=== PATIENT | female | born 1960 | race Caucasian/White ===

== ENCOUNTER 2024-07-04 18:46 | Emergency (ER) | payer MEDICARE, SELFPAY ==
[2024-07-04 18:47] VITALS: BMI 39.4
[2024-07-04 19:17] VITALS: BP 188/113; BP 196/103; PULSE 76; RESP 20; TEMP 36.9; O2SAT 96
--- NOTE | 2024-07-04 19:17 | EKG_ITS ---
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
--- NOTE | 2024-07-04 19:31 | XR_ITS ---
Examination: PA chest single view TECHNIQUE: Upright PA chest single view Date and time: July 04, 2024 1937 hours Comparison January 16, 2023 INDICATIONS: Hypertension chest pain today FINDINGS: Normal heart size. Lungs are clear. The osseous structures are intact IMPRESSION: No active disease
--- NOTE | 2024-07-04 19:31 | PD.EDRME ---
Rapid Medical Screening Exam [facility] Arrival date/time: 07/04/24 18:46 64F with history of HTN, HLD, and bipolar disorder presents to ED with 1 day of CP that radiates to jaw and back, as well as some weakness. Patient took 4 baby aspirins with the last dose 2 hours ago. Chief Complaint: Chest Pain Vital signs: Vital Signs Temperature 98.4 F 07/04/24 19:17 Pulse Rate 76 07/04/24 19:17 Respiratory Rate 20 07/04/24 19:17 Blood Pressure 188/113 H 07/04/24 19:17 Pulse Oximetry (%) 96 07/04/24 19:17 Oxygen Delivery Method Room Air 07/04/24 19:17
[2024-07-04 20:21] LABS: Basophils % (Auto) 0 % (0-2.5); Eosinophils # (Auto) 0.2 Thou/mm3 (0.0-0.5); Eosinophils % (Auto) 2 % (0-10); Hematocrit 43.5 % (36.0-46.0); Hemoglobin 14.4 g/dL (12.0-16.0); Immature Granulocytes % (Auto) 0 % (0-0); Immature Granulocytes Auto 0.02 Thou/mm3 (0.00-0.00); Lymphocytes # (Auto) 3.2 Thou/mm3 (1.0-4.8); Lymphocytes % (Auto) 41 % (10-50); Mean Corpuscular HGB Conc 33.1 g/dl (31.0-37.0); Mean Corpuscular Hemoglobin 29.4 pg (25.0-35.0); Mean Corpuscular Volume 89 fL (80-100); Monocytes # (Auto) 0.7 Thou/mm3 (0.0-0.8); Monocytes % (Auto) 9 % (0-12); Neutrophils # (Auto) 3.7 Thou/mm3 (1.8-7.7); Neutrophils % (Auto) 47 % (37-80); Nucleated Red Blood Cell % 0 /100 WBC (0); Platelet Count 250 Thou/mm3 (140-440); RDW Standard Deviation 40.8 fL (36.4-46.3); White Blood Count 7.9 Thou/mm3 (3.6-11.0)
[2024-07-04 20:34] LABS: Partial Thromboplastin Time 25.4 Seconds (22.0-36.0); Prothrombin Time 10.5 Seconds (9.0-12.2)
[2024-07-04 20:54] LABS: Alanine Aminotransferase 20 U/L (10-49); Albumin, Serum 4.6 gm/dL (3.4-4.8); Albumin/Globulin Ratio 1.9 (1.2-2.2); Alkaline Phosphatase 112 U/L (46-116); Anion Gap 11 (7-16); Aspartate Amino Transferase 23 U/L (0-34); BUN/Creatinine Ratio 15 Ratio (12-20); Bilirubin,Total 0.2 mg/dL (0.3-1.2); Blood Urea Nitrogen 15 mg/dL (9-23); Calcium 9.2 mg/dL (8.3-10.6); Calcium (Corrected) 9.2 mg/dL (8.5-10.1); Carbon Dioxide 26.4 mMol/L (20.0-31.0); Chloride 107 mMol/L (98-107); Globulin 2.4 gm/dL (2.3-3.5); Glucose 105 mg/dL (74-106); Magnesium 1.9 mg/dL (1.6-2.6); Osmolality,Calculated 287 (275-295); Potassium 4.2 mMol/L (3.4-5.1); Sodium 144 mMol/L (136-145); Troponin I < 0.002 ng/mL (0.0-0.045); eGFR > 60 See Note
[2024-07-04 22:16] LABS: Troponin I < 0.020 ng/mL (0.0-0.045)
[2024-07-05] VITALS (7 sets, daily range): BP systolic 183–238; BP diastolic 72–114; PULSE 61–87; RESP 16–30; TEMP 36.9; O2SAT 96–98
--- NOTE | 2024-07-05 00:08 | PD.EDCHEST ---
ED Chest Pain RME/HPI General Chief Complaint: Chest Pain Stated Complaint: HIGH BP, CHEST PAIN AND BACK PAIN X1 DAY Arrival date/time: 07/04/24 18:46 RME / HPI RME / HPI narrative: 07/04/24 18:46 64F with history of HTN, HLD, and bipolar disorder presents to ED with 1 day of CP that radiates to jaw and back, as well as some weakness. Patient took 4 baby aspirins with the last dose [address] Sparks?s Main ED Evaluation: 64yo female with a history of HTN, HLD presents to the ED for a chief complaint of mid chest pain x 1000. Patient states she's had intermittent chest pain that radiates to her neck since 10 this morning. Patient describes her pain as aching and burning in nature. She states she feels very fatigued. She checked her blood pressure at home and was noted to be over 200 systolically, so she came in for evaluation. Patient states she normally takes her lisinopril 20mg at night, but has not taken it yet due to being here in the ED. Patient denies any fever, chills, cough, shortness of breath or any other associated symptoms. No known allergies. Related Data Home Medications ?Medication ?Instructions ?Recorded ?Confirmed bupropion HCl 150 mg 24 hr tablet, 150 mg PO DAILY ##0 11/16/11 extended release (Wellbutrin XL) lisinopril 40 mg tablet 40 mg PO DAILY ##0 11/16/11 naproxen sodium 220 mg tablet 220 mg PO [id number] ##0 11/16/11 (Aleve) quetiapine 300 mg tablet (Seroquel) 300 mg PO HS ##0 11/16/11 ferrous sulfate 325 mg (65 mg 325 mg PO QDAY #0 tabs 04/13/15 iron) tablet (Feosol) simvastatin 20 mg tablet (Zocor) 20 mg PO HS #0 tabs 04/13/15 Previous Rx's ?Medication ?Instructions ?Recorded albuterol sulfate 90 mcg/actuation 2 puff inhalation QID PRN 02/14/20 aerosol inhaler (ProAir HFA) shortness of breath or wheezing #18 grams azithromycin 500 mg tablet See Rx Instructions PO .COMPLEX #6 02/14/20 (Zithromax TRI-KENZIE) tabs dexamethasone 6 mg tablet 6 mg PO QDAY #7 tabs 02/14/20 (Decadron) Allergies Allergy/AdvReac Type Severity Reaction Status Date / Time No Known Allergies Allergy Unverified 07/04/24 19:34 Review of Systems Review of Systems Systems Reviewed: All systems reviewed, normal except as documented Past Medical History Past Medical History CARDIAC: Negative Congestive Heart Failure RESPIRATORY: Negative Chronic Obstructive Pulmonary Disease (COPD) GENITOURINARY: Negative Renal Disease ENDOCRINE: Negative Diabetes Mellitus Type 1 or Diabetes Mellitus Type 2 OTHER HISTORY: Positive Blood Transfusions Social History SMOKING STATUS: Never smoker ED Exam Narrative Physical exam: GENERAL APPEARANCE: alert and oriented x 4, well-developed, well-nourished, no acute distress VITALS: All vitals were reviewed and the pulse ox is 96% on room air, which is normal according to my interpretation. HEENT: Normocephalic, atraumatic; pupils equal, round, reactive to light; EOMI; mucous membranes pink, moist; oropharynx clear NECK: Supple LUNGS: CTABL; no wheezes, no rales, no rhonchi HEART: Regular rate, regular rhythm; normal S1, S2; no murmurs ABDOMEN: non distended; normal BS; soft, no tenderness, no guarding, no rebound; no masses, no organomegaly, no hernia BACK: no CVA tenderness EXTREMITIES: atraumatic; no edema NEUROLOGIC: awake; alert and oriented x4; cranial nerves II-XII grossly intact; no focal sensory or motor deficits PSYCHIATRIC: appropriate mood and affect SKIN: warm, dry, normal color; no rashes Course Course Course Narrative: CXR is ordered for determining the etiology of chest pain. Quality Measures none Orders Category Date Time Status CT Screening NOW Care 07/05/24 00:24 Active Certified Forklift Operator Q4H START 00 Care 07/05/24 01:02 Active EKG (ED ONLY) *Do not use* NOW Care 07/04/24 19:17 Completed Insert IV NOW Care 07/05/24 01:[address] angio chest Stat Exams 07/05/24 00:[address] head/brain wo con Stat Exams 07/05/24 03:00 Taken EKG (ED Only) Stat Exams 07/04/24 19:17 Draft XR chest 1V portable Stat Exams 07/04/24 19:31 Completed CBC Stat Lab 07/04/24 19:48 Completed Comprehensive Metabolic Panel Stat Lab 07/04/24 19:48 Completed Magnesium Stat Lab 07/04/24 19:48 Completed Partial Thromboplastin Time Stat Lab 07/04/24 19:48 Completed Prothrombin Time with INR Stat Lab 07/04/24 19:48 Completed Troponin I Stat Lab 07/04/24 19:48 Completed Troponin I Stat Lab 07/04/24 21:38 Completed Famotidine [Pepcid] Med 07/05/24 00:17 Discontinued 20 mg PO X1 ONE Labetalol IV [Trandate IV] Med 07/05/24 02:57 Discontinued 20 mg IVP X1 ONE Labetalol IV [Trandate IV] Med 07/05/24 02:58 Discontinued 20 mg IVP X1 ONE Lisinopril [Prinivil] Med 07/05/24 00:17 Discontinued 20 mg PO X1 ONE Nitroglycerin [Nitrostat 1/150] Med 07/04/24 19:33 Discontinued 0.4 mg SL X1 ONE hydrALAZINE INJ [Apresoline Inj] Med 07/05/24 04:40 Once 5 mg IV X1 ONE mg Hyd/Al Hyd/Korey Susp [Maalox Susp] Med 07/05/24 00:17 Discontinued 30 ml PO X1 ONE Vital Signs Vital signs: Vital Signs Temperature 98.4 F 07/04/24 19:17 Pulse Rate 76 07/04/24 19:17 Respiratory Rate 20 07/04/24 19:17 Blood Pressure 188/113 H 07/04/24 19:17 Pulse Oximetry (%) 96 07/04/24 19:17 Oxygen Delivery Method Room Air 07/04/24 19:17 Chest Pain MDM Narrative MDM Narrative:: Scribe Attestation: 07/05/24 - Tess Rojas am scribing for and in the presence of Dr. Sparks. HEART score is 3, indicating the patient is at a low risk for a cardiac event. 0231: Patient is still pending CTA of the chest at this time. 0258: Patient's blood pressure is 238/114 with a HR of 78. Labetalol 20mg IV ordered. CT head ordered due to the patient becoming mildly confused. Patient does also complain of a headache. 0436: Son at bedside states the patient was falling asleep earlier, reporting she talks in her sleep. Patient is now back to her baseline per her son. Discussed results with her and the son at bedside. Patient is stable to be discharged home. Patient data External records reviewed:: [facility] previous records (Per chart review, patient was seen here on 01/16/23 for atypical chest pain.) Clinical information provided by:: patient Social determinants that could affect healthcare access:: none Patient has the following chronic illnesses:: HTN, HLD How is presenting disease/condition affected by chronic disease/condition?: uneffected by Evaluation data The following diagnostics were reviewed and interpreted by me:: lab results, radiology exam(s) and EKG tracing(s) Lab and/or radiology exams considered but not ordered:: none Interpretation Summary: CBC is normal, PT and INR are normal, PTT is normal, CMP is normal, Initial and Repeat troponins are normal, according to my interpretation. CXR shows normal cardiac silhouette, normal sharp diaphragmatic edge, no infiltrates, normal costophrenic angles, according to my interpretation. EKG done at 1920, NSR, rate of 782, normal axis, no ectopy, no acute ischemia, according to my interpretation. [facility] Preliminary Report Draft Patient: LACHO MARK Record#: [id number] Birthdate: 1960 Age/Sex: 64 / F Location: [facility] Attending Dr: Ordering Physician: Date of Service: Procedure(s): Accession Number(s): cc: ~ CT scan of the head without intravenous contrast (axial sections with sagittal and coronal reformats) July 05, 2024 0326 hours Clinical History: Altered mental status Comparison: No prior study is available for comparison. Findings: There is no evidence of intracranial hemorrhage, mass effect or midline shift. There is mild volume loss. There is a small indeterminate lucency in the right parietal bone. There is a small retention cyst or polyp in the right maxillary sinus. The mastoid air cells and the other visualized paranasal sinuses are clear. Impression: No evidence of intracranial hemorrhage, mass effect or midline shift. Mild volume loss. Small indeterminate lucency in the right parietal bone. Recommend follow-up. Report Electronically Signed By: Herrera Lerma 07/05/2024 4:15:53 AM [EST] Teler[facility] Preliminary Report Draft Patient: LACHO MARK Record#: [id number] Birthdate: 1960 Age/Sex: 64 / F Location: [facility] Attending Dr: Ordering Physician: Date of Service: Procedure(s): Accession Number(s): cc: ~ CT angiogram of the chest aorta with intravenous contrast (axial sections with sagittal and coronal reformats) July 05, 2024 0331 hours Clinical History: Sharp chest pain, hypertension Comparison: No prior study is available for comparison. Findings: The evaluation is slightly limited due to respiratory motion artifact. The thoracic aorta demonstrates mild atheromatous calcification without evidence of dissection or aneurysm. The origins of the right brachiocephalic, left common carotid and left subclavian arteries are patent. There is no filling defect within the pulmonary artery divisions to suggest pulmonary thromboembolism. There are small mediastinal lymph nodes, likely reactive. There is no pericardial effusion. Mild bibasilar dependent atelectasis is present. The lungs are otherwise clear. No evidence of pleural effusion or pneumothorax. Degenerative changes are identified in the spine. There is scoliosis of the thoracic spine with convexity to the left. The gallbladder is surgically absent. The other visualized upper abdominal viscera are unremarkable. Impression: No CT evidence of pulmonary thromboembolism or aortic dissection/aneurysm. No other acute intrathoracic pathology. Other findings as described above. Report Electronically Signed By: Herrera Lerma 07/05/2024 4:22:23 AM [EST] Medications / Prescriptions Medications or Prescriptions considered but not ordered:: none Medication administrations:: Medication Administration History Discontinued Medications Al Hydrox/Mg Hydrox/Simethicone (Mg Hyd/Al Hyd/Korey (Maalox Reg) Susp 30 Ml Udc) 30 ml PO X1 ONE Stop: 07/05/24 00:18 Last Admin: 07/05/24 00:49 Dose: 30 ml Documented By: BD Famotidine (Famotidine 20 Mg Tablet) 20 mg PO X1 ONE Stop: 07/05/24 00:18 Last Admin: 07/05/24 00:49 Dose: 20 mg Documented By: BD Labetalol HCl (Labetalol Inj 5 Mg/Ml Vial 20 Ml) 20 mg IVP X1 ONE Stop: 07/05/24 02:58 Last Admin: 07/05/24 03:07 Dose: 20 mg Documented By: BD Labetalol HCl (Labetalol Inj 5 Mg/Ml Vial 20 Ml) 20 mg IVP X1 ONE Stop: 07/05/24 02:59 Last Admin: 07/05/24 02:59 Dose: Not Given Documented By: BD Non-Admin Reason: Duplicate Medication on eMAR Lisinopril (Lisinopril 20 Mg Tablet) 20 mg PO X1 ONE Stop: 07/05/24 00:18 Last Admin: 07/05/24 00:50 Dose: 20 mg Documented By: BD Nitroglycerin (Nitroglycerin 0.4 Mg Subl Btl #25) 0.4 mg SL X1 ONE Stop: 07/04/24 19:34 Last Admin: 07/05/24 00:49 Dose: Not Given Documented By: BD Non-Admin Reason: Cancelled by Provider see above Consultations Consultation(s) initiated? (list below): No Diagnosis Chest Pain Differential Diagnosis: pneumothorax, st elevation myocardial infarction and other (NSTEMI, chest wall pain) Most likely diagnosis given after review of the tests above:: see clinical impression below Admission Indicated Admission indicated?: not indicated Explain why admission is indicated or not indicated:: Patient's diagnostic tests are unremarkable. Patient is stable for outpatient management. Admission Request Was there a request for admission?: No Disposition Plan Disposition Plan: Discharge Discharge Attestation Discharge Attestation: The patient and all family members were given an opportunity to ask questions and understood the discharge instructions. Discharge instructions specifically effects, indications for sooner follow up or return to the emergency department, and the expected course of current diagnosis. Patient condition: Stable Discharge Plan Plan Patient Disposition: HOME (Self Care) Discharge Disposition comment: Stable for discharge home Patient condition on transfer: Stable Prescriptions/Referrals Prescriptions/Med Rec: No Action quetiapine [Seroquel] 300 MG tablet 300 mg PO HS Qty: 0 lisinopril 40 MG tablet 40 mg PO DAILY Qty: 0 bupropion HCl [Wellbutrin XL] 150 MG tablet extended release 24 hr 150 mg PO DAILY Qty: 0 naproxen sodium [Aleve] 220 MG tablet 220 mg PO [id number] Qty: 0 simvastatin [Zocor] 20 MG tablet 20 mg PO HS Qty: 0 ferrous sulfate [Feosol] 1 TAB tablet 325 mg PO QDAY Qty: 0 azithromycin [Zithromax TRI-KENZIE] 500 mg tablet See Rx Instructions .ROUTE .COMPLEX Qty: 6 0RF Rx Instructions: take 500 mg today (day 1), then 250 mg for 4 days (days 2-5) albuterol sulfate [ProAir HFA] 90 mcg/actuation HFA aerosol inhaler 2 puff inhalation QID PRN (Reason: shortness of breath or wheezing) Qty: 18 0RF dexamethasone [Decadron] 6 mg tablet 6 mg PO QDAY Qty: 7 0RF Referrals: Tyron Brown MD [Physician] - In 1 week Pola Barry MD [Primary Care Provider] - In 1 week Problem List Clinical Impression: Chest pain, Hypertension Patient/Caregiver Discharge Instructions Discharge Activity: activity as tolerated Education Materials: ED Chest Pain, Uncertain Cause, ED Hypertension, Established Additional Instructions: Please return to the emergency department if you have any worsening or any further medical problems and we will help you. Otherwise you should follow-up with your primary care doctor within the next several days Print Language: Spanish Stand Alone Forms: Dasia Award Info., Patient Portal Info Letter
--- NOTE | 2024-07-05 00:24 | XR_ITS ---
Examination: CTA chest with intravenous contrast 2-D reconstructions 3-D reconstructions, vascular Date and time of exam: July 05, 2024, 0331 hours INDICATIONS: Hypertensive crisis, chest pain today shortness of breath CTDI: vol (mGy) 18 DLP: (mGycm) 674 Technique: Multiple axial sections of the thorax have been obtained. 3 mm slice thickness, from below the hemidiaphragms to above the apices of the lungs. Mediastinal and lung density settings have been obtained. 2-D sagittal and coronal reconstructions. 3-D angiographic renderings, 3-D volume renderings, 3D post processing, vascular maximum intensity projections obtained. Contrast administered is 100 cc Isovue 370 intravenous. Low dose protocols were performed. One or more of the following dose reduction techniques were used; automated exposure control, adjustment of the mA and/or KV according to patient size, use of iterative reconstruction technique. Findings: No thoracic aortic aneurysmal dilatation or dissection Pulmonary artery segments are not enlarged No pulmonary artery filling defects No pneumonia, pulmonary edema, pleural disease or pulmonary mass lesions No visualized liver is splenic lesion Absent gallbladder No pancreatic mass Moderate thoracic spondylosis IMPRESSION: Negative for pulmonary artery emboli No pneumonia, pulmonary edema or pleural disease
[2024-07-05] MEDS: FAMOTIDINE 20 MG TABLET PO (00:49)
[2024-07-05] MEDS: MG HYD/AL HYD/SIME (Maalox Reg) SUSP 30 ML UDC PO (00:49)
[2024-07-05] MEDS: Lisinopril 20 MG TABLET PO (00:50)
--- NOTE | 2024-07-05 03:00 | XR_ITS ---
Examination: CT brain head without contrast. 2-D sagittal coronal reconstructions Date and time of exam:July 05, 2024, 0326 hours COMPARISON: October 12, 2011 INDICATIONS: Altered mental status today CTDI: vol (mGy):6.8 DLP: (mGycm):1321 Technique: Multiple CT axial sections of the brain have been obtained, 5 mm slice thickness. Contrast has not been administered. 2-D sagittal, coronal reconstructions have been obtained Low dose protocols were performed. One or more of the following dose reduction techniques were used; automated exposure control, adjustment of the mA and/or KV according to patient size, use of iterative reconstruction technique. Findings: No significant ventricular enlargement. Intra-axial or extra-axial hemorrhage density is not seen. No mass effect or midline shift Basal cisterns are not remarkable. Fourth ventricle is midline. Cranial vault intact. I do not visualize a lesion in the right parietal lobe Impression: Negative for acute hemorrhage, mass effect or midline shift If symptoms persist, consider brain MRI follow-up without contrast
--- NOTE | 2024-07-05 03:01 | PC.NURSE ---
[facility] in [facility] hospital as she sees bertha asked if i seen them,states she did not know which hospital or her notified dr rod.
[2024-07-05] MEDS: LABETALOL INJ 5 MG/ML VIAL 20 ML 20 MG IVP (03:07)
--- NOTE | 2024-07-05 04:16 | PRELIM_ITS ---
CT scan of the head without intravenous contrast (axial sections with sagittal and coronal reformats) July 05, 2024 0326 hours Clinical History: Altered mental status Comparison: No prior study is available for comparison. Findings: There is no evidence of intracranial hemorrhage, mass effect or midline shift. There is mild volume loss. There is a small indeterminate lucency in the right parietal bone. There is a small retention cyst or polyp in the right maxillary sinus. The mastoid air cells and the other visualized paranasal sinuses are clear. Impression: No evidence of intracranial hemorrhage, mass effect or midline shift. Mild volume loss. Small indeterminate lucency in the right parietal bone. Recommend follow-up. Report Electronically Signed By: Herrera Lerma 07/05/2024 4:15:53 AM [EST]
--- NOTE | 2024-07-05 04:23 | PRELIM_ITS ---
CT angiogram of the chest aorta with intravenous contrast (axial sections with sagittal and coronal reformats) July 05, 2024 0331 hours Clinical History: Sharp chest pain, hypertension Comparison: No prior study is available for comparison. Findings: The evaluation is slightly limited due to respiratory motion artifact. The thoracic aorta demonstrates mild atheromatous calcification without evidence of dissection or aneurysm. The origins of the right brachiocephalic, left common carotid and left subclavian arteries are patent. There is no filling defect within the pulmonary artery divisions to suggest pulmonary thromboembolism. There are small mediastinal lymph nodes, likely reactive. There is no pericardial effusion. Mild bibasilar dependent atelectasis is present. The lungs are otherwise clear. No evidence of pleural effusion or pneumothorax. Degenerative changes are identified in the spine. There is scoliosis of the thoracic spine with convexity to the left. The gallbladder is surgically absent. The other visualized upper abdominal viscera are unremarkable. Impression: No CT evidence of pulmonary thromboembolism or aortic dissection/aneurysm. No other acute intrathoracic pathology. Other findings as described above. Report Electronically Signed By: Herrera Lerma 07/05/2024 4:22:23 AM [EST]
[2024-07-05] MEDS: hydrALAZINE INJ 20 MG/ML VIAL 5 MG IV (04:58)
== END 2024-07-05 05:37 | disposition home or self-care (01) ==
PROVIDERS: Physician Assistant; Emergency Provider Emergency Medicine; PCP Family Medicine
DX: R07.89 Other chest pain (principal); I10 Essential (primary) hypertension; R94.31 Abnormal electrocardiogram [ECG] [EKG]; R41.82 Altered mental status, unspecified; R06.02 Shortness of breath; E78.5 Hyperlipidemia, unspecified
CPT/HCPCS: 36415; 70450; 71045; 71275; 80053; 83735; 84484; 85025; 85610; 85730; 93005; 96374; 99285; A4649; J0360; J3490; Q9967; A9270; J1920